=== PATIENT | female | born 1965 | race Caucasian/White ===

== ENCOUNTER 2019-06-30 13:03 | Emergency (ER) | payer OTHER ==
[~2019-06-30] VITALS: Ht 157.5 cm; Wt 77.6 kg
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
[2019-06-30 13:08] VITALS: BP 154/87
--- NOTE | 2019-06-30 13:10 | NUR ---
ASSISTED WITH CHANGING INTO GOWN. FULL ROM NOTED TO UPPER EXTREMETIES. REPORTS MILD DISCOMFORT WITH MOVING LEFT ARM. NO VISIBLE TRAUMA NOTED BENEATH GOWN. SKIN NORMAL FOR ETHNICITY, WARM, DRY. BREATHING EVEN, UNLABORED.
[2019-06-30] MEDS ORDERED: KETOROLAC 60 MG/2 ML VIAL IM ONE (13:30)
--- NOTE | 2019-06-30 13:40 | NUR ---
MEDICATED WITH 60 MG IM TORADOL FOR 3/10 SHOULDER, HIP PAIN AND HURD. WILL REASSESS IN 30 MINS.
--- NOTE | 2019-06-30 14:01 | NUR ---
TAKEN TO XRAY VIA [facility].
--- NOTE | 2019-06-30 14:16 | NUR ---
RETURN FROM [facility] VIA [facility].
--- NOTE | 2019-06-30 14:21 | NUR ---
PT DENIES PAIN AT THIS TIME. STATES THAT MEDICATION MADE HER FEEL BETTER. 0/10 PAIN. TORADOL EFFECTIVE.
[2019-06-30 15:35] VITALS: BP 145/80
--- NOTE | 2019-06-30 15:35 | NUR ---
Patient discharged with v/s stable. Written and verbal after care instructions given and explained. Patient alert, oriented and verbalized understanding of instructions. with steady gait. All questions addressed prior to discharge. ID band removed. Patient advised to follow up with PMD. Rx of Motrin given. Patient educated on indication of medication including possible reaction and side effects. Opportunity to ask questions provided and answered.
== END 2019-06-30 15:35 | disposition home or self-care (01) ==
LOC: MED 13:03
DX: S16.1XXA Strain of muscle, fascia and tendon at neck level, initial encounter (principal); S46.912A Strain of unspecified muscle, fascia and tendon at shoulder and upper arm level, left arm, initial encounter; S76.012A Strain of muscle, fascia and tendon of left hip, initial encounter; Z90.49 Acquired absence of other specified parts of digestive tract; V89.2XXA Person injured in unspecified motor-vehicle accident, traffic, initial encounter; Y93.89 Activity, other specified; Y92.89 Other specified places as the place of occurrence of the external cause; Y99.8 Other external cause status
CPT/HCPCS: 72040; 73030; 73502; 96372; 99283; J1885